=== PATIENT | male | born 1950 | race Caucasian/White ===

== ENCOUNTER 2024-11-26 03:01 | Inpatient (IN) | payer BC, MEDICARE ==
[2024-11-26] MEDS: Alum Hydrox/Mag Hydrox/Simeth 15 ML, Lidocaine 2% 15 ML PO ONE (03:24)
[2024-11-26 04:03] LABS: BASOPHILS ABSOLUTE AUTO 0.03 K/uL (0.00-0.10); BASOPHILS PERCENT AUTO 0.2 % (0.1-1.3); EOSINOPHILS PERCENT AUTO 0.1 % (0.0-5.4); HEMATOCRIT 49.2 % (38.4-49.7); HEMOGLOBIN 16.5 g/dL (12.9-16.9); IMMATURE GRAN ABSOLUTE AUTO 0.08 K/uL (0.00-0.23); IMMATURE GRAN PERCENT AUTO 0.6 % (0.0-0.7); LYMPHOCYTES ABSOLUTE AUTO 1.18 K/uL (0.8-3.3); LYMPHOCYTES PERCENT AUTO 9.5 % (11.4-47.7); MEAN CORPUSCULAR HEMOGLOBIN 31.8 pg (31.6-35.5); MEAN CORPUSCULAR HGB CONC 33.5 g/dL (31.6-35.5); MEAN CORPUSCULAR VOLUME 94.8 fL (81.4-99.0); MONOCYTES PERCENT AUTO 7.3 % (3.3-12.6); NEUTROPHILS ABSOLUTE AUTO 10.18 K/uL (1.0-7.6); NEUTROPHILS PERCENT AUTO 82.3 % (40.0-78.1); PLATELET COUNT,PLT 279 K/uL (130-375); RED BLOOD CELL COUNT 5.19 M/uL (4.14-5.76); WHITE BLOOD CELL COUNT,WBC 12.4 K/uL (3.2-11.0)
[2024-11-26 04:24] LABS: A/G RATIO 0.8 (1.2-2.2); ALANINE AMINOTRANSFERASE,ALT 29 U/L (12-78); ALBUMIN 3.3 g/dL (3.4-5.0); ALKALINE PHOSPHATASE 77 U/L (46-116); ANION GAP 11.6 mmol/L (5.0-14.0); ASPARTATE AMNIOTRANSFERASE,AST 23 U/L (15-37); BILIRUBIN TOTAL 0.9 mg/dL (0.2-1.0); BLOOD UREA NITROGEN,BUN 26 mg/dL (7-18); C-REACTIVE PROTEIN 3.17 mg/dL (<0.50); CALCIUM 9.4 mg/dL (8.5-10.1); CARBON DIOXIDE,CO2 31 mmol/L (21-32); CHLORIDE,CL 97 mmol/L (100-108); CREATININE 0.8 mg/dL (0.8-1.3); EST CRCL DRUG DOSING (CG) 73.96 mL/min; ESTIMATED GFR 94 mL/min (>60); GLUCOSE RANDOM 148 mg/dL (74-106); POTASSIUM,K 3.6 mmol/L (3.6-5.2); PROTEIN TOTAL,TP 7.7 g/dL (6.4-8.2); SODIUM,NA 136 mmol/L (140-148)
[2024-11-26 04:25] LABS: EOSINOPHILS ABSOLUTE AUTO 0.01 K/uL (0.00-0.40)
[2024-11-26] MEDS: Sodium Chloride 0.9% 10 ML Syringe FLUSH PRN (04:51)
[2024-11-26] MEDS: Iopamidol 612 MG/ML 100 ML Bottle IV SCH (04:51)
[2024-11-26] MEDS: Sodium Chloride 0.9% 100 ML IV SCH (04:51)
[2024-11-26] MEDS ORDERED: Naloxone 0.4 MG/ML SDV IVPUSH PRN (06:28)
[2024-11-26] MEDS: Ondansetron 4 MG/2 ML SDV IVPUSH ONE (06:36)
[2024-11-26] MEDS: fentaNYL 50 MCG/ML SDV IVPUSH ONE (06:38)
[2024-11-26] MEDS: Lidocaine 4% Top Soln 50 ML Bottle MUCMEM ONE (06:42)
[2024-11-26] MEDS ORDERED: Acetaminophen 325 MG Tab PO PRN (08:41)
[2024-11-26] MEDS ORDERED: Ondansetron 4 MG/2 ML SDV IV PRN (08:41)
[2024-11-26] MEDS ORDERED: Morphine 2 MG/ML SYRINGE IVPUSH PRN (08:41)
[2024-11-26] MEDS ORDERED: LORazepam 2 MG/ML SDV IVPUSH PRN (08:41)
[2024-11-26] MEDS ORDERED: Sennosides/Docusate Sodium 50-8.6 MG Tab PO PRN (08:41)
[2024-11-26] MEDS ORDERED: Albuterol 0.083% 2.5 MG/3 ML Neb Soln NEB PRN (08:41)
[2024-11-26] MEDS ORDERED: Magnesium Hydroxide 400 MG/5 ML Susp 30 ML Cup PO PRN (08:41)
[2024-11-26] MEDS: Sodium Chloride 0.9% 1,000 ML IV SCH (08:56)
[2024-11-27 06:02] LABS: HEMATOCRIT 45.3 % (38.4-49.7); MEAN CORPUSCULAR HGB CONC 33.1 g/dL (31.6-35.5); MEAN CORPUSCULAR VOLUME 96.6 fL (81.4-99.0); RED BLOOD CELL COUNT 4.69 M/uL (4.14-5.76); WHITE BLOOD CELL COUNT,WBC 9.1 K/uL (3.2-11.0)
[2024-11-27 06:27] LABS: A/G RATIO 0.8 (1.2-2.2); ALANINE AMINOTRANSFERASE,ALT 25 U/L (12-78); ALBUMIN 2.8 g/dL (3.4-5.0); ALKALINE PHOSPHATASE 62 U/L (46-116); ASPARTATE AMNIOTRANSFERASE,AST 17 U/L (15-37); BILIRUBIN TOTAL 0.6 mg/dL (0.2-1.0); BLOOD UREA NITROGEN,BUN 23 mg/dL (7-18); C-REACTIVE PROTEIN 2.22 mg/dL (<0.50); CALCIUM 8.4 mg/dL (8.5-10.1); CARBON DIOXIDE,CO2 33 mmol/L (21-32); CHLORIDE,CL 103 mmol/L (100-108); CREATININE 0.6 mg/dL (0.8-1.3); EST CRCL DRUG DOSING (CG) 96.81 mL/min; ESTIMATED GFR 103 mL/min (>60); GLUCOSE RANDOM 95 mg/dL (74-106); PROTEIN TOTAL,TP 6.5 g/dL (6.4-8.2); SODIUM,NA 139 mmol/L (140-148)
[2024-11-27 06:31] LABS: ANION GAP 5.9 mmol/L (5.0-14.0); POTASSIUM,K 2.9 mmol/L (3.6-5.2)
[2024-11-27] MEDS: Potassium Chloride 10 MEQ in Premix Bag 1 BAG IV SCH (07:39)
[2024-11-27] MEDS: Metoprolol Succinate 50 MG Tab.ER PO SCH (08:22)
[2024-11-27] MEDS: Hydrochlorothiazide/Triamterene 25-37.5 Tab PO SCH (08:23)
[2024-11-27] MEDS: Allopurinol 100 MG Tab PO SCH (08:23)
[2024-11-27] MEDS: Diatrizoate Meglumine/Diatrizoate Sodium 37% 120 ML Bottle PO SCH (11:15)
[2024-11-28 06:08] LABS: HEMATOCRIT 44.4 % (38.4-49.7); MEAN CORPUSCULAR HEMOGLOBIN 31.8 pg (31.6-35.5); MEAN CORPUSCULAR HGB CONC 33.8 g/dL (31.6-35.5); MEAN CORPUSCULAR VOLUME 94.1 fL (81.4-99.0); RED BLOOD CELL COUNT 4.72 M/uL (4.14-5.76); WHITE BLOOD CELL COUNT,WBC 10.1 K/uL (3.2-11.0)
[2024-11-28 06:30] LABS: A/G RATIO 0.7 (1.2-2.2); ALANINE AMINOTRANSFERASE,ALT 25 U/L (12-78); ALBUMIN 2.9 g/dL (3.4-5.0); ALKALINE PHOSPHATASE 63 U/L (46-116); ASPARTATE AMNIOTRANSFERASE,AST 18 U/L (15-37); BILIRUBIN TOTAL 0.6 mg/dL (0.2-1.0); BLOOD UREA NITROGEN,BUN 24 mg/dL (7-18); C-REACTIVE PROTEIN 2.48 mg/dL (<0.50); CALCIUM 8.5 mg/dL (8.5-10.1); CARBON DIOXIDE,CO2 30 mmol/L (21-32); CHLORIDE,CL 102 mmol/L (100-108); CREATININE 0.7 mg/dL (0.8-1.3); EST CRCL DRUG DOSING (CG) 82.98 mL/min; ESTIMATED GFR 98 mL/min (>60); GLUCOSE RANDOM 116 mg/dL (74-106); POTASSIUM,K 3.2 mmol/L (3.6-5.2); PROTEIN TOTAL,TP 6.8 g/dL (6.4-8.2); SODIUM,NA 137 mmol/L (140-148)
[2024-11-28 06:33] LABS: ANION GAP 8.2 mmol/L (5.0-14.0)
[2024-11-28] MEDS: Potassium Chloride 10 MEQ in Premix Bag 1 BAG IV SCH (08:45)
[2024-11-29] MEDS: Ondansetron 4 MG Tab.DIS PO PRN (00:20)
[2024-11-29] MEDS: Pantoprazole 40 MG Tab.CR PO SCH (04:38)
[2024-11-29] MEDS: Calcium Carbonate 500 MG Tab.Chew PO PRN (04:38)
== END 2024-11-29 12:52 | disposition home or self-care (01) | DRG 389 ==
LOC: JP.ED 03:01 → JP.MS 07:59
PROVIDERS: ADMIT Hospitalist; ATTEND Internal Medicine
PROC: 0D9670Z Drainage of Stomach with Drainage Device, Via Natural or Artificial Opening (ICD-10-PCS; principal; 2024-11-26)
DX: K56.7 Ileus, unspecified (principal); K56.609 Unspecified intestinal obstruction, unspecified as to partial versus complete obstruction; Z68.41 Body mass index [BMI] 40.0-44.9, adult; I10 Essential (primary) hypertension; K58.9 Irritable bowel syndrome, unspecified; M10.9 Gout, unspecified; E87.6 Hypokalemia; E66.9 Obesity, unspecified; Z98.49 Cataract extraction status, unspecified eye; Z79.899 Other long term (current) drug therapy; Z98.890 Other specified postprocedural states
CPT/HCPCS: 36415; 71045; 74018; 74177; 80053; 83605; 84484; 85025; 86140; 96374; 96375; 99285; A9270 ×3; J2405; J3010; Q9967; 74019; 85027; 99223; 99232; 99238; J3480; J7030; Q0162; Q9963